=== PATIENT | male | born 1965 | race Caucasian/White ===

== ENCOUNTER 2020-08-16 03:35 | Emergency (ER) | payer OTHER, SELFPAY ==
[2020-08-16 04:27] LABS: Absolute Lymphocytes (CBC) 0.4 K/uL (0.7-4.9); Basophils % 0.3 % (0-1.3); Hematocrit 24.6 % (39.6-49.0); Lymphocytes % 4.1 % (15.3-44.8); MPV 7.3 fL (7.6-11.3); RBC Red Blood Cell Count 2.77 M/uL (4.33-5.43)
[2020-08-16 04:39] LABS: Albumin 2.8 g/dL (3.4-5.0); Bilirubin Total 0.3 mg/dL (0.2-1.0); Potassium 3.3 mmol/L (3.5-5.1); Protein, Total 6.7 g/dL (6.4-8.2)
[2020-08-16 05:12] LABS: Blood Morphology Comment NOT SEEN (NOT SEEN); Platelet Estimate ADEQ
--- NOTE | 2020-08-16 06:16 | EDPHYS ---
Physician Documentation [facility] – [place], [place] Name: Louie Barragan Age: 55 yrs Sex: Male : 1965 Arrival Date: 08/16/2020 Time: 03:36 Bed 2 Private MD: ED Physician Thi Alan HPI: 08/16 03:58 This 55 yrs old Male presents to ER via Ambulatory with complaints of SWOLLEN ma2 MOUTH. 03:58 The patient or guardian complains of pain. Onset: The symptoms/episode began/occurred ma2 gradually, 3 week(s) ago. Associated signs and symptoms: Pertinent negatives: bladder incontinence, numbness, tingling. Severity of symptoms: At their worst the symptoms were moderate, in the emergency department the symptoms have resolved. The patient has not experienced similar symptoms in the past. patient has tongue cancer taking chemo and radiation therapy, sent here by his chemotherapy doctor to get a mouth ct to rule out abscess since he has been draining pus and saliva from a wound in his chin for "weeks". Historical: - Allergies: 03:54 PENICILLINS; em - PMHx: 03:54 tongue cancer; em - PSHx: 03:54 None; em - Immunization history:: Adult Immunizations up to date. - Social history:: Smoking status: Patient denies any tobacco usage or history of. - Family history:: not pertinent. ROS: 03:58 Constitutional: Negative for fever, chills, and weight loss. ma2 03:58 All other systems are negative. ma2 Exam: 03:58 Constitutional: This is a well developed, well nourished patient who is awake, alert, ma2 and in no acute distress. Head/Face: Normocephalic, atraumatic. Eyes: Pupils equal round and reactive to light, extra-ocular motions intact. Lids and lashes normal. Conjunctiva and sclera are non-icteric and not injected. Cornea within normal limits. Periorbital areas with no swelling, redness, or edema. ENT: tongue is erodded with gum and mouth cancer diffuse, there is awound in the floor of the mouth, there is are of redness and tenderness and induration on the chin, otherwise Oropharynx with no redness, swelling, or masses, exudates, or evidence of obstruction, uvula midline. Mucous membranes moist. Neck: Trachea midline, no thyromegaly or masses palpated, and no cervical lymphadenopathy. Supple, full range of motion without nuchal rigidity, or vertebral point tenderness. No Meningismus. Chest/axilla: Normal chest wall appearance and motion. Nontender with no deformity. No lesions are appreciated. Cardiovascular: Regular rate and rhythm with a normal S1 and S2. No gallops, murmurs, or rubs. Normal PMI, no JVD. No pulse deficits. Respiratory: Lungs have equal breath sounds bilaterally, clear to auscultation and percussion. No rales, rhonchi or wheezes noted. No increased work of breathing, no retractions or nasal flaring. Abdomen/GI: Soft, non-tender, with normal bowel sounds. No distension or tympany. No guarding or rebound. No evidence of tenderness throughout. Vital Signs: 03:51 BP 131 / 67; Pulse 96; Resp 18; Temp 98.9; Pulse Ox 96% on R/A; Weight 49.9 kg; Height em 5 ft. 7 in. (170.18 cm); Pain 3/10; 05:31 BP 128 / 91; Pulse 98; Resp 18; Pulse Ox 99% on R/A; mg2 06:21 BP 121 / 85; Pulse 90; Resp 17; Pulse Ox 98% ; rr5 03:51 Body Mass Index 17.23 (49.90 kg, 170.18 cm) em MDM: 03:43 Patient medically screened. [facility] 03:58 Differential diagnosis: arthritis, cellulitis, vs tongue cancer progression vs abscess. [facility] 06:15 Data reviewed: vital signs, nurses notes. Counseling: I had a detailed discussion with ma2 the patient and/or guardian regarding: the historical points, exam findings, and any diagnostic results supporting the discharge/admit diagnosis, the presence of at least one elevated blood pressure reading (>120/80) during this emergency department visit, the need for outpatient follow up. Response to treatment: the patient's symptoms have markedly improved after treatment. 08/16 03:58 Order name: CBC with Diff; Complete Time: 05:29 [facility] 08/16 03:58 Order name: CMP; Complete Time: 04:39 [facility] 08/16 03:58 Order name: Soft Tissue Neck W/Contr CT [facility] 08/16 04:29 Order name: IV Saline Lock; Complete Time: 04:29 rr5 08/16 04:38 Order name: Manual Differential; Complete Time: 05:29 [facility] 08/16 06:22 Order name: Wound Care; Complete Time: 06:22 rr5 Administered Medications: No medications were administered Disposition: 08/16/20 06:16 Discharged to Home. 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 - Condition is Stable. - Discharge Instructions: Cellulitis, Adult, [id number]. - Prescriptions for Clindamycin HCl 300 mg Oral Capsule - take 1 capsule by ORAL route every 6 hours for 10 days; 40 capsule. - Medication Reconciliation Form, Thank You Letter, Antibiotic Education, Prescription Opioid Use form. - Follow up: Private Physician; When: Tomorrow; Reason: If symptoms return, Continuance of care. Signatures: Dispatcher [employer] [facility] Jack Gagnon, RN RICHY Zander Dan, SENIOR TECHNICAL EDITOR-C SENIOR TECHNICAL EDITOR-Cla1 Thi Alan MD MD [facility] Ryan Fritz RN RN rr5 Corrections: (The following items were deleted from the chart) 04:01 03:58 patient has tongue cancer taking chemo and radiation therapy, sent here by his [facility] chemotherapy doctor to get a mouth ct to rule out abscess since he has been draining pus and saliva from a wound in his chin.. [facility] 05:04 03:59 Maxillofacial W/Cont+CT.RAD.BRZ ordered. [facility] 06:26 06:16 08/16/2020 06:16 Discharged to Home. Impression: Carcinoma in situ of floor of rr5 mouth - with cellulitis. Condition is Stable. Forms are Medication Reconciliation Form, Thank You Letter, Antibiotic Education, Prescription Opioid Use. Follow up: Private Physician; When: Tomorrow; Reason: If symptoms return, Continuance of care. [facility] 06:51 06:26 08/16/2020 06:16 Discharged to Home. Impression: Carcinoma in situ of floor of em mouth - with cellulitis. Condition is Stable. Discharge Instructions: Cellulitis, Adult, [id number]. Prescriptions for Clindamycin HCl 300 mg Oral Capsule - take 1 capsule by ORAL route every 6 hours for 10 days; 40 capsule. and Forms are Medication Reconciliation Form, Thank You Letter, Antibiotic Education, Prescription Opioid Use. Follow up: Private Physician; When: Tomorrow; Reason: If symptoms return, Continuance of care. rr5
--- NOTE | 2020-08-16 06:16 | ER ---
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 Coronavirus screen: Client denies travel out of the [place] in the last 14 days. Ebola Screen: Patient negative for fever greater than or equal to 101.5 degrees Fahrenheit, and additional compatible Ebola Virus Disease symptoms Patient denies exposure to infectious person. Patient denies travel to an Ebola-affected area in the 21 days before illness onset. No symptoms or risks identified at this time. Initial Sepsis Screen: Does the patient meet any 2 criteria? HR > 90 bpm. No. Patient's initial sepsis screen is negative. Does the patient have a suspected source of infection? Yes: Skin breakdown/wound. Risk Assessment: Do you want to hurt yourself or someone else? Patient reports no desire to harm self or others. Onset of symptoms was August 16, 2020. 03:51 Method Of Arrival: Ambulatory em 03:51 Acuity: JHONATAN 3 em Historical: - Allergies: 03:54 PENICILLINS; em - PMHx: 03:54 tongue cancer; em - PSHx: 03:54 None; em - Immunization history:: Adult Immunizations up to date. - Social history:: Smoking status: Patient denies any tobacco usage or history of. - Family history:: not pertinent. Screenin:42 Abuse screen: Denies threats or abuse. Denies injuries from another. Nutritional rr5 screening: No deficits noted. Tuberculosis screening: No symptoms or risk factors identified. 04:00 Fall Risk IV access (20 points). mg2 Assessment: 03:56 General: Appears in no apparent distress. uncomfortable, Behavior is calm, cooperative, rr5 appropriate for age. Pain: Complains of pain in submental area Pain currently is 3 out of 10 on a pain scale. Quality of pain is described as aching, Pain began gradually, Is intermittent. Neuro: Level of Consciousness is awake, alert, obeys commands, Oriented to person, place, time. Cardiovascular: Capillary refill < 3 seconds Patient's skin is warm and dry. Respiratory: Airway is patent Respiratory effort is even, unlabored, Respiratory pattern is regular, symmetrical. GI: No signs and/or symptoms were reported involving the gastrointestinal system. : No signs and/or symptoms were reported regarding the genitourinary system. EENT: wound on the lower lip noted, redness, positive discharge on the chin area saliva and pus draining noted. 05:32 Reassessment: Patient appears in no apparent distress at this time. Patient and/or mg2 family updated on plan of care and expected duration. Pain level reassessed. Patient is alert, oriented x 3, equal unlabored respirations, skin warm/dry/pink. 06:22 Reassessment: Patient appears in no apparent distress at this time. Patient is alert, rr5 oriented x 3, equal unlabored respirations, skin warm/dry/pink. reassess by ED provider with order for discharge, instruction given and explained without complaints made. Vital Signs: 03:51 BP 131 / 67; Pulse 96; Resp 18; Temp 98.9; Pulse Ox 96% on R/A; Weight 49.9 kg; Height em 5 ft. 7 in. (170.18 cm); Pain 3/10; 05:31 BP 128 / 91; Pulse 98; Resp 18; Pulse Ox 99% on R/A; mg2 06:21 BP 121 / 85; Pulse 90; Resp 17; Pulse Ox 98% ; rr5 03:51 Body Mass Index 17.23 (49.90 kg, 170.18 cm) em ED Course: 03:36 Patient arrived in ED. ag3 03:42 Ryan Fritz, RICHY is Primary Nurse. rr5 03:42 Thi Alan MD is Attending Physician. ma2 03:42 Patient has correct armband on for positive identification. Bed in low position. Call rr5 light in reach. Pulse ox on. NIBP on. 03:54 Triage completed. em 03:54 Arm band placed on. em 03:59 No provider procedures requiring assistance completed. Inserted saline lock: 20 gauge rr5 in right forearm, using aseptic technique. ,using aseptic technique. inserted by melvi Blood collected. 04:00 No provider procedures requiring assistance completed. Inserted saline lock: 20 gauge mg2 in right forearm, using aseptic technique. Blood collected. 05:06 Soft Tissue Neck W/Contr CT In Process Unspecified. EDMS 06:15 Wound care: to cellulitis located on neck and submental area was cleaned with rr5 Hibiclens, dressed with Neosporin, 4X4s, non adherent, Patient tolerated well. 06:20 IV discontinued, intact, bleeding controlled, No redness/swelling at site. Pressure rr5 dressing applied. 06:49 Primary Nurse role handed off by Ryan Fritz, RN em Administered Medications: No medications were administered Outcome: 06:16 Discharge ordered by . ma2 06:20 Discharged to home ambulatory. rr5 06:20 Condition: stable 06:20 Discharge instructions given to patient, Instructed on discharge instructions, follow up and referral plans. medication usage, Demonstrated understanding of instructions, follow-up care, medications, Prescriptions given X 1. 06:26 Patient left the ED. rr5 06:51 Patient left the ED. em Signatures: Dispatcher [employer] [facility] Jack Gagnon RN RN em Thi Alan MD MD ma2 Gardose, Michele, RICHY [place] [facility] [place] Maylin Ayers 3 Ryan Fritz, RN RN rr5 Corrections: (The following items were deleted from the chart) 03:56 03:51 Chief complaint: Patient states: pt reports having tongue cancer that has been em getting chemo and radiation in [place], pt reports he has developed holes under his chin that have been leaking puss/saliva, pt was recently treated with clindamycin, denies difficulty breathing, rates pain 07/13 em
[2020-08-16 06:34] VITALS: TEMP 98.9
[2020-08-16 06:36] VITALS: BP 121/85; O2SAT 98
--- NOTE | 2020-08-16 14:10 | RAD REPORT ---
EXAM DESCRIPTION: ADDENDUM #1 Urgent finding reported to Dr. Alan at 08/16/2020 5:29 AM CDT Electronically signed by: Tevin Stubbs 08/16/2020 6:37 AM CDT End of Addendum EXAM DESCRIPTION: Soft Tissue Neck W/Contr CLINICAL HISTORY: 55 years Male, abscess floor of mouth COMPARISON: None Available. TECHNIQUE: CT of the neck soft tissues obtained following the uncomplicated intravenous administrati on of iodinated contrast This exam was performed according to our departmental dose-optimization prog alissa, which includes automated exposure control, adjustment of the mA and/or kV according to patient s ize and/or use of iterative reconstruction technique. FINDINGS: Soft tissue: No acute abnormality of the visualized intraorbital contents. The parotid glands are unr emarkable. No abnormalities of the parapharyngeal space or retropharyngeal space. No abnormalities of the thyroid gland. No pneumothorax is visualized lung apices. Carotid artery atherosclerosis. Necrotic enlarged left cervical lymph nodes. There is an irregular peripheral enhancing hypodense structure extending along the base of the tongue and submandibular region measuring at least 5.3 x 5.1 x 2.8 cm. There is a sinus tract to the subman dibular subcutaneous soft tissues. Bones: Degenerative endplate spondylosis and facet arthropathy of the spine. Severe destructive changes involving the mandibular protuberance and right body of the mandible with multiple areas of cortical disruption. Minimal mucosal thickening of the left maxillary sinus. Opacities in the right mastoid air cells. Lef t mastoid air cells are well aerated. IMPRESSION: 1. Irregular peripherally enhancing hypodense structure arising at the base of the tongu e measuring at least 5.3 cm in greatest dimension. This may represent a large necrotic mass. Superimp osed infection could contribute to this appearance. 2. Destructive changes involving the mandibular protuberance and rightward body of the mandible may r epresent invasion/erosion by tongue base mass however osteomyelitis could produce/contribute to this appearance. 3. Multiple enlarged necrotic left cervical lymph nodes may be metastatic or infectious. Electronically signed by: Tevin Stubbs 08/16/2020 5:30 AM CDT Due to temporary technical issues with the PACS/Fluency reporting system, reports are being signed by the in house radiologists without review as a courtesy to insure prompt reporting. The interpreting radiologist is fully responsible for the content of the report.
== END 2020-08-16 06:51 | disposition home or self-care (01) ==
LOC: ER 03:35
DX: K12.2 Cellulitis and abscess of mouth (principal); D00.06 Carcinoma in situ of floor of mouth
CPT/HCPCS: 36415; 70491; 80053; 85025; 99284; Q9967